=== PATIENT | female | born 1995 | race Two or more races ===

== ENCOUNTER 2017-11-01 11:03 | Emergency (ER) | payer MEDICAID ==
[~2017-11-01] VITALS: Ht 165.1 cm; Wt 76.0 kg
[2017-11-01] MEDS ORDERED: TAM75C PO (12:45)
[2017-11-01] MEDS ORDERED: BENZ-16 PO (12:45)
[2017-11-01 13:13] VITALS: BP 105/63
[2017-11-02] MEDS ORDERED: ALBU6.7H INH (11:09)
== END 2017-11-01 13:14 | disposition home or self-care (01) ==
LOC: ER 11:04
DX: R05 Cough (principal); R50.9 Fever, unspecified; J02.9 Acute pharyngitis, unspecified; M79.1 Myalgia
CPT/HCPCS: 71046; 87081; 87880; 99285

== ENCOUNTER 2017-11-02 09:04 | Emergency (ER) | payer MEDICAID ==
[~2017-11-02] VITALS: Ht 165.1 cm; Wt 78.0 kg
[~2017-11-02 09:04] MED LIST: BENZ-16 PO; TAM75C PO
[2017-11-02] MEDS ORDERED: dexamethasone 4mg tablet PO ONE (10:25)
[2017-11-02] MEDS ORDERED: ALBU6.7H INH (11:09)
[2017-11-02 11:13] VITALS: BP 114/73
== END 2017-11-02 11:15 | disposition home or self-care (01) ==
LOC: ER 09:05
DX: J11.1 Influenza due to unidentified influenza virus with other respiratory manifestations (principal); J45.909 Unspecified asthma, uncomplicated
CPT/HCPCS: 36415; 87502; 87503; 99284; J8540